=== PATIENT | female | born 1985 | race American Indian/Alaskan Native ===

== ENCOUNTER 2016-07-05 08:29 | Emergency (ER) | payer OTHER, BC ==
[2016-07-05 08:45] VITALS: BP 126/92
[2016-07-05] MEDS ORDERED: MOTRIN PO ONE (09:34)
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
== END 2016-07-05 11:13 | disposition home or self-care (01) ==
LOC: ED 08:29
DX: S13.4XXA Sprain of ligaments of cervical spine, initial encounter (principal); S16.1XXA Strain of muscle, fascia and tendon at neck level, initial encounter; V49.49XA Driver injured in collision with other motor vehicles in traffic accident, initial encounter; Y93.9 Activity, unspecified; Y92.9 Unspecified place or not applicable; Y99.8 Other external cause status
CPT/HCPCS: 70450; 72125; 99283